=== PATIENT | male | born 1975 ===

== ENCOUNTER → 2019-05-22 09:22 | Outpatient (CLI) | payer BC ==
--- NOTE | 2019-05-24 12:06 | EC ---
PATIENT:EMETERIO LEE DATE OF SERVICE: 05/22/19 SEX: M MEDICAL RECORD: [id number] DATE OF : 71 [facility] AGE [facility] PAT[facility]: 44 ADMISSION DATE: 05/22/19 REFERRING PHYSICIAN: INTERPRETING PHYSICIAN: KELLY SCHMITT MD ECHOCARDIOGRAM REPORT ECHO CHARGES 4 ECHO COMPLETE Date: 05/22/19 CLINICAL DIAGNOSIS: MURMUR H/O ATYPICAL CP/HTN ECHOCARDIOGRAPHIC MEASUREMENTS (adult normal given) AC root (d.<3.7cm) 3.2 cm LV Septum d (<1.2 cm> 1.1 cm Valve Excursion 1.9 cm LV Septum (systole) 2.1 cm Left Atria (s.<4.0cm> 3.9 cm LVPW d(<1.2cm) 1.4 cm RV (d.<2.3cm) 2.6 cm LVPW (sytole) 1.9 cm LV diastole(<5.6CM) 5.1 cm MV E-F(>70mm/sec) cm LV systole 2.6 cm LVOT Diameter 1.7 cm MV exc.(>10mm) cm Est.ejection fraction (50-75%) % DOPPLER: LVIT cm/sec A 58.0 cm/sec E 80.0 cm/sec LA cm/sec RVSP 26.0 mmHg LVOT 120 cm/sec AOP1/2T m/s Asc. Ao 169 cm/sec RVOT 57.0 cm/sec RA cm/sec PA 143 cm/sec AV Gradient Peak 12.0 mmHg AV Mean 5.8 mmHg AV Area 1.3 cm MV Gradient Peak 3.0 mmHg MV Mean 1.2 mmHg MV Area cm COMMENTS: OP - HC Helper Teacher: 1 SEAN VON Toolmaker Grade Three: 3 Dr. Isabel TAPE# PACS Pericardial Effusion N DATE OF SERVICE: Adequate 2D, Color Flow, Spectral Doppler, and M-Mode Borderline LVH. LV internal dimension is normal and wall motion is normal. EF is greater than 55%. Aortic valve is tricuspid. No evidence of stenosis by Doppler interrogation. Left atrium is normal. Mitral valve shows no prolapse. Trace MR. Right-sided chambers are grossly normal. Trace TR. TRANSINT:[id number] Voice Confirmation ID: [id number] DOCUMENT ID: [id number] ECHOCARDIOGRAM REPORT [id number] EMETERIO LEE GREGORY A MD at 1206 CC: [id number] DICTATION DATE: 05/23/19 1320 INSIDE SALES ACCOUNT EXECUTIVE: 05/23/19 2234 DEP CLI 05/22/19 [place] [id number] [place] [id number]
== END | disposition home or self-care (01) ==
LOC: D.HCCECHO 09:22
PROVIDERS: ATTEND Internal Medicine Interventional Cardiology
DX: R01.1 Cardiac murmur, unspecified (principal)